=== PATIENT | male | born 1960 | race Two or more races ===

== ENCOUNTER 2024-05-19 10:54 | Emergency (ER) | payer BC, OTHER ==
[~2024-05-19] VITALS: Ht 198.1 cm; Wt 151.3 kg
--- NOTE | 2024-05-19 11:57 | ED.PDOC ---
Musculoskeletal HPI Comments 63y M who presents to the ED for chief complaint of R foot pain. Pt states he has prior toenails removed from all 5 toes on R foot. Pt states last night PM, he noticed redness, swelling, and some blackened tissue to the 3rd toe on the R foot. Pt states this AM, he called his search and rescue officer and states he was told to come to the local ED for further evaluation. Pt in the ED, rates his pain 3/10, constant, pressure like in nature, with noted exacerbation of pain with ambulation and no relieving factors. Pt otherwise denies shortness of breath, fever, cough, chills, or any associated symptoms. Pt otherwise has noted R foot in brace with esa bandage to the R foot. Pt has noted history of DM and has prior has hammer toes in the past. Pt otherwise denies any other symptoms at this time. Time Seen by MD: 11:51 Reviewed Notes: Nurses Notes, Medications, Allergies (No allergies to medications) Allergies: Coded Allergies: NO KNOWN ALLERGIES (Unverified , 05/19/24) Information Source: Patient Mode of Arrival: Ambulatory Brought in by: self Location: Right Extremity Location: Foot Timing: Hours Prehospital treatment: None Severity: Moderate Able to Move Extremity: Yes Bear Weight: Limited Pain: Moderate Mechanism: Spontaneous Circumstances: Preceding Wound Onset of Symptoms: Spontaneous Symptoms: Swelling, Pain DVT Risk Factors: Immobilization Last Tetanus: Unknown Associated signs and symptoms: Foot pain Past Medical History PAST MEDICAL HISTORY: DM Surgical History (Other): R foot, bilateral shoulder Family History Family History: Family hx of Cancer Social History Smoker: Cigarettes Alcohol: Denies ETOH Use Drugs: Denies Drug Use Lives In: Home Constitutional: denies: chills, diaphoresis, fatigue, fever, malaise, sweats, weakness, others EENTM: denies: blurred vision, double vision, ear bleeding, ear discharge, ear drainage, ear pain, ear ringing, eye pain, eye redness, hearing loss, mouth pain, mouth swelling, nasal discharge, nose bleeding, nose congestion, nose pain, photophobia, tearing, throat pain, throat swelling, voice changes, others Respiratory: denies: cough, hemoptysis, orthopnea, SOB at rest, shortness of breath, SOB with excertion, stridor, wheezing, others Cardiovascular: denies: chest pain, dizzy spells, diaphoresis, Dyspnea on exertion, edema, irregular heart beat, left arm pain, lightheadedness, palpitations, PND, syncope, others Gastrointestinal: denies: abdomen distended, abdominal pain, blood streaked bowels, constipated, diarrhea, dysphagia, difficulty swallowing, hematemesis, melena, nausea, poor appetite, poor fluid intake, rectal bleeding, rectal pain, vomiting, others Genitourinary: denies: burning, dysuria, flank pain, frequency, hematuria, incontinence, penile discharge, penile sore, pain, testicle pain, testicle swelling, urgency, others Neurological: denies: dizziness, fainting, headache, left sided numbness, left sided weakness, numbness, paresthesia, pre-existing deficit, right sided numbness, right sided weakness, seizure, speech problems, tingling, tremors, weakness, others Musculoskeletal: denies: back pain, gout, joint pain, joint swelling, muscle pain, muscle stiffness, neck pain, others Integumetry: reports: change in color (r foot, 3rd toe), wounds (R foot, 3rd toe); denies: bruises, change in hair/nails, dryness, laceration, lesions, lumps, rash, others Allergic/Immunocompromised: denies: Difficulty Healing, Frequent Infections, Hives, Itching, others Hematologic/Lymphatic: denies: anemia, blood clots, easy bleeding, easy bruising, swollen glands, others Endocrine: denies: excessive hunger, excessive sweating, excessive thirst, excessive urination, flushing, intolerance to cold, intolerance to heat, unexplained weight gain, unexplained weight loss, others Psychiatric: denies: anxiety, bipolar disorder, depression, hopeless, panic disorder, schizophrenia, sleepless, suicidal, others All Other Systems: Reviewed and Negative Physical Exam General Appearance: Moderate Distress HEENT: Normal ENT Inspection, Pharynx Normal, TMs Normal Neck: Full Range of Motion, Non-Tender, Normal, Normal Inspection Respiratory: Chest Non-Tender, Lungs Clear, No Accessory Muscle Use, No Respiratory Distress, Normal Breath Sounds Cardiovascular: No Edema, No JVD, No Murmur, No Gallop, Normal Peripheral Pulses, Regular Rate/Rhythm Breast Exam: Deferred Gastrointestinal: No Organomegaly, Non Tender, No Pulsatile Mass, Normal Bowel Sounds, Soft Genitalia: Deferred Pelvic: Deferred Rectal: Deferred Extremities: No calf tenderness, Normal capillary refill, No pedal edema Musculoskeletal : Apperance: Normal Neurologic: Alert, quality control lead II-XII nml as Tested, No Motor Deficits, Normal Affect, Normal Mood, No Sensory Deficits Cerebellar Function: Normal Reflexes: Normal Skin: Dry, Normal Color, Warm, Other (There is redness as well as drainage from the right foot 3rd digit with tenderness to palpation) Lymphatic: No Adenopathy Was a procedure done? Was a procedure done?: No Differential Diagnosis EXT Differential Diagnosis: Cellulitis, Fracture, Septic Other Differential Diagnosis osteomyelitis X-Ray, Labs, Meds, VS Vital Signs Date Time Temp Pulse Resp B/P (MAP) Pulse Ox O2 Delivery O2 Flow Rate FiO2 05/19/24 11:10 97.8 82 18 120/76 (91) 96 Lab Test 05/19/24 14:31 05/19/24 12:41 05/19/24 11:25 Range/Units Erythrocyte Sedimentation Rate Pending White Blood Count 11.1 H 4.4-10.8 10^3/uL Red Blood Count 5.20 4.5-5.90 10^6/uL Hemoglobin 16.7 13.5-17.5 g/dL Hematocrit 48.9 41.0-53.0 % Mean Corpuscular Volume 94.0 80.0-100.0 fL Mean Corpuscular Hemoglobin 32.1 H 28.0-32.0 pg Mean Corpuscular Hemoglobin Concent 34.2 32.0-36.0 g/dL Red Cell Distribution Width 13.1 11.8-14.3 % Platelet Count 137 L 140-450 10^3/uL Mean Platelet Volume 8.9 6.9-10.8 fL Neutrophils (%) (Auto) 70.1 37.0-80.0 % Lymphocytes (%) (Auto) 19.3 10.0-50.0 % Monocytes (%) (Auto) 5.5 0.0-12.0 % Eosinophils (%) (Auto) 4.3 0.0-7.0 % Basophils (%) (Auto) 0.8 0.0-2.0 % Neutrophils # (Auto) 7.8 1.6-8.6 10 ^3/uL Lymphocytes # (Auto) 2.1 0.4-5.4 10 ^3/uL Monocytes # (Auto) 0.6 0-1.3 10 ^3/uL Eosinophils # (Auto) 0.5 0-0.8 10 ^3/uL Basophils # (Auto) 0.1 0-0.2 10 ^3/uL Nucleated Red Blood Cells 0.2 % Prothrombin Time 10.3 9.3-11.8 sec Prothrombin Time INR 0.97 0.9-1.15 Activated Partial Thromboplast Time 25.6 24.5-34.5 SEC Sodium Level 135 L 136-145 mmol/L Potassium Level 4.2 3.5-5.1 mmol/L Chloride Level 103 98-107 mmol/L Carbon Dioxide Level 25 20-31 mmol/L Anion Gap 7 5-15 Blood Urea Nitrogen 17 9-23 mg/dL Creatinine 0.94 0.700-1.30 mg/dL Glomerular Filtration Rate Calc 91 >90 mL/min BUN/Creatinine Ratio 18.1 10.0-20.0 Serum Glucose 265 H 74-106 mg/dL Calcium Level 10.1 8.7-10.4 mg/dL POC Glucose 269 H 70-106 mg/dl TECHNIQUE: Noncontrast CT of the right foot was performed. Sagittal and coronal reformatted images are provided. IMPRESSION: 1. Motion degraded study, especially the toes. Consider radiographs for further evaluation. Within this limitation no acute osseous abnormality. 2. Soft tissue swelling in the foot. At this time we are concerned about osteomyelitis so the patient was being admitted to the hospitalist Most likely the patient will receive an MRI The patient's CBC shows an elevated white blood cell count of 11.1 The chemistry panel shows hyperglycemia at 265 The patient was also given clindamycin IV piggyback The patient was being admitted and the foot and ankle surgeon will be consulted. Images Reviewed?: Images reviewed and evaluated by me Time of 1ST Reevaluation: 12:20 Reevaluation 1ST: Unchanged Patient Education/Counseling: Diagnosis, Treatment Family Education/Counseling: No Family Present Additional Information - I reviewed the following notes from patient's past medical encounters: - The following tests were ordered, and results were reviewed by me: (Labs, X- Ray, EKG): cbc, bmp, esr, ptptt, CT R foot w/o contrast - Additional information was gathered from interviewing the following independent Historian: (Family, Other Providers, EMT): self - I reviewed and agreed with the following test results read by other provider: (X-ray, CT, US):radiologist - I discussed treatments and results with medical personnel and: (consultants, family): none Departure 1 Departure Time of Disposition: 14:49 Impression: Primary Impression: Cellulitis of right foot Additional Impression: Diabetes type 2, uncontrolled Qualified Codes: E11.65 - Type 2 diabetes mellitus with hyperglycemia Disposition: ADMITTED INPATIENT Admit to: Med Surg Condition: Fair Critical Care Note Critical Care Time?: No Stability Stability form required: Yes Unstable for transfer: ED Physician Assesment (Clinical assesment) Heart Score Heart Score: Heart Score Response (Comments) Value History N/A 0 EKG N/A 0 Age N/A 0 Risk Factors N/A 0 Troponin N/A 0 Total 0 I personally scribed for TERESO BACH MD ([email or web address]) on 05/19/24 at 11:57. Electronically submitted by Bonnie Quezada ([email or web address]). I personally scribed for TERESO BACH MD ([email or web address]) on 05/19/24 at 12:37. Electronically submitted by Bonnie Quezada ([email or web address]). TERESO BACH MD May 19, 2024 11:57
--- NOTE | 2024-05-19 12:00 | DVH ---
CLINICAL INDICATION: 63 years old, Male; infection. TECHNIQUE: Noncontrast CT of the right foot was performed. Sagittal and coronal reformatted images ar e provided. COMPARISON: None CT Dose: CTDI volume is 7.8 mGy. Dose-length product is 190.2 mGy*cm FINDINGS: There is motion artifact in the forefoot which obscures the toes and limits evaluation of the phalang es and metatarsal heads. There is no evidence of cortical irregularity, destruction or fracture in th e hindfoot or midfoot bones. Artifact limits evaluation of the distal tibia and distal fibula. There soft tissue swelling of the foot. No fluid collection. Joint spaces appear to be maintained. Ankle mo rtise is symmetric. IMPRESSION: 1. Motion degraded study, especially the toes. Consider radiographs for further evaluation. Within th is limitation no acute osseous abnormality. 2. Soft tissue swelling in the foot. All CT scans at this medical facility are performed using dose modulation techniques as appropriate t o a performed exam including the following: Automated exposure control was utilized; adjustment of th e MA and/or KV according to patient size; and use of iterative reconstruction technique.
[2024-05-19 13:11] LABS: Basophils # (auto) 0.1 10 ^3/uL (0-0.2); Basophils % (auto) 0.8 % (0.0-2.0); Eosinophils # (auto) 0.5 10 ^3/uL (0-0.8); Eosinophils % (auto) 4.3 % (0.0-7.0); Hematocrit 48.9 % (41.0-53.0); Hemoglobin 16.7 g/dL (13.5-17.5); Lymphocytes # (auto) 2.1 10 ^3/uL (0.4-5.4); Lymphocytes % (auto) 19.3 % (10.0-50.0); Mean Corpuscular Hemoglobin 32.1 pg (28.0-32.0); Mean Corpuscular Hgb Conc. 34.2 g/dL (32.0-36.0); Monocytes # (auto) 0.6 10 ^3/uL (0-1.3); Monocytes % (auto) 5.5 % (0.0-12.0); Neutrophils # (auto) 7.8 10 ^3/uL (1.6-8.6); Neutrophils % (auto) 70.1 % (37.0-80.0); Nucleated Red Blood Cells % 0.2 %; Platelet Count (auto) 137 10^3/uL (140-450); Red Cell Distribution Width 13.1 % (11.8-14.3); White Blood Cell 11.1 10^3/uL (4.4-10.8)
[2024-05-19 13:18] LABS: Chloride 103 mmol/L (98-107); Potassium 4.2 mmol/L (3.5-5.1)
[2024-05-19 13:19] LABS: Anion Gap 7 (5-15); Calcium 10.1 mg/dL (8.7-10.4); Carbon Dioxide 25 mmol/L (20-31)
[2024-05-19 13:24] LABS: BUN/Creatinine Ratio 18.1 (10.0-20.0); Blood Urea Nitrogen 17 mg/dL (9-23); INR 0.97 (0.9-1.15); Partial Thromboplastin Time 25.6 SEC (24.5-34.5); Prothrombin Time 10.3 sec (9.3-11.8)
[2024-05-19 13:25] LABS: Glucose 265 mg/dL (74-106); Sodium 135 mmol/L (136-145)
[2024-05-19] MEDS: SODIUM CHLORIDE 0.9% 500 ML IV ONE (14:51)
[2024-05-19 14:52] VITALS: BP 138/79; PULSE 83; RESP 16; TEMP 98.7; O2SAT 94
[2024-05-19] MEDS: CLINDAMYCIN 600MG IV 50 ML IV ONE (14:52)
[2024-05-19 15:00] VITALS: PULSE 83; RESP 16; O2SAT 94
[2024-05-19 15:42] LABS: Erythrocyte Sedimentation Rate 9 mm/hr (0-20)
== END 2024-05-19 19:18 | disposition left against medical advice (07) ==
LOC: ER 10:54
DX: L03.115 Cellulitis of right lower limb (principal); E11.65 Type 2 diabetes mellitus with hyperglycemia; F17.210 Nicotine dependence, cigarettes, uncomplicated
CPT/HCPCS: 36415; 73700; 80048; 82962; 85025; 85610; 85652; 85730; 96365; 99285; J3490